=== PATIENT | female | born 1950 | race Caucasian/White ===

== ENCOUNTER 2018-09-14 05:53 | Day surgery (SDC) | payer OTHER, MEDICAID ==
[~2018-09-14] VITALS: Ht 147.3 cm; Wt 122.5 kg
[~2018-09-14 05:53] MED LIST: ARIP1TAB12 PO; ASPI81TA27 PO; CHOL50007 PO; FLUO-125 PO; LEVO175T31 PO; LORA-622 PO; METAPOW IN; OXYB10TA14 PO; SIMV-13 PO; TRIA50CA38 PO
[2018-09-14] MEDS ORDERED: BUPIVACAINE 0.25% INJ 50ML VIAL ONE (07:03)
[2018-09-14] MEDS ORDERED: LIDOCAINE 1% HCL (LOCAL ANESTH.) INJ 20ML MDV ONE (07:03)
[2018-09-14] MEDS ORDERED: ceFAZolin 1GM/50ML 100 ML IV ONE (07:05)
[2018-09-14] MEDS ORDERED: SUCCINYLCHOLINE CHLORIDE 20 MG/ML 10ML VIAL IV ONE (07:08)
[2018-09-14] MEDS ORDERED: LIDOCAINE 1% (LOCAL ANESTH.) PF 5ml SDV ONE (07:08)
[2018-09-14] MEDS ORDERED: MIDAZOLAM HCL 1MG/1ML-2 ML VIAL ONE (07:19)
[2018-09-14] MEDS ORDERED: ROCURONIUM 10MG/ML 10ML VIAL IV ONE (07:21)
[2018-09-14] MEDS ORDERED: ETOMIDATE (2MG/ML) 20ML VIAL IV ONE (07:21)
[2018-09-14] MEDS ORDERED: METOCLOPRAMIDE HCL 5MG/ml INJ 2ml VIAL ONE ×2 (07:24→08:59)
[2018-09-14] MEDS ORDERED: fentaNYL CITRATE 100 MCG/2 ML VL ONE (07:40)
[2018-09-14] MEDS ORDERED: ESMOLOL HCL 10 ML IV ONE (07:41)
[2018-09-14] MEDS ORDERED: GLYCOPYRROLATE 0.2 MG/ML 1ML VIAL ONE (07:58)
[2018-09-14] MEDS ORDERED: NEOSTIGMINE 1 MG/ML INJ (10mg/10ML VIAL) ONE (07:58)
[2018-09-14] MEDS ORDERED: ONDANSETRON HCL 4 MG/2 ML VIAL IV ONE (08:00)
[2018-09-14] MEDS ORDERED: hydrALAZINE HCL 20 MG/ML VL IV PRN (08:00)
[2018-09-14] MEDS ORDERED: HYDROmorphone HCL 2 MG/ML VL IV PRN ×2 (08:00)
[2018-09-14] MEDS ORDERED: NALOXONE HCL 0.4 MG/ML VIAL IV PRN (08:00)
[2018-09-14] MEDS ORDERED: ALBUTEROL SULFATE 90 MCG MDI IN ONE (08:10)
[2018-09-14] MEDS ORDERED: hydrALAZINE HCL 20 MG/ML VL IV ONE (08:28)
[2018-09-14 08:41] VITALS: BP_SYST 174; BP_SYST 96; BP_DIAS 96
[2018-09-14] MEDS ORDERED: MORPHINE SULF(PF) 0.5MG/ML 10ML VIAL ONE (09:08)
[2018-09-14] MEDS ORDERED: methylPREDNISolone SOD SUCC 125 MG/2 ML VL IV ONE (09:15)
[2018-09-14] MEDS ORDERED: FUROSEMIDE 40 MG/4 ML VIAL IV ONE (09:15)
[2018-09-14] MEDS ORDERED: FUROSEMIDE 20 MG/2 ML VIAL ONE (09:20)
[2018-09-14] MEDS ORDERED: PHENYLEPHRINE HCL 10 MG/ML VL ONE (09:21)
[2018-09-14] MEDS ORDERED: SODIUM CHLORIDE LOCK 10 ML ONE (09:21)
[2018-09-14] MEDS ORDERED: PROPOFOL 10 MG/ML 20 ML IV ONE (09:23)
[2018-09-14] MEDS ORDERED: diphenhdrAMINE HCL 50 MG/1 ML VL ONE (09:29)
[2018-09-14] MEDS ORDERED: ACETAMINOPHEN IV 1000 MG/100ML (10MG/ML) IV ONE (10:00)
[2018-09-14 10:25] VITALS: BP 139/76
[2018-09-14] MEDS ORDERED: ALBUTEROL SULF 2.5 MG/0.5ML(0.5%) NEB SOLN NEB PRN (11:30)
[2018-09-14] MEDS ORDERED: LEVALBUTEROL HCL 1.25 MG/0.5 ML NEB SOLN NEB ONE (14:00)
== END 2018-09-14 13:20 | disposition home or self-care (01) ==
LOC: SUR 05:53
PROVIDERS: ATTEND Orthopaedic Surgery Adult Reconstructive Orthopaedic Surgery
DX: G56.03 Carpal tunnel syndrome, bilateral upper limbs (principal); E11.22 Type 2 diabetes mellitus with diabetic chronic kidney disease; I13.10 Hypertensive heart and chronic kidney disease without heart failure, with stage 1 through stage 4 chronic kidney disease, or unspecified chronic kidney disease; N18.4 Chronic kidney disease, stage 4 (severe); J45.909 Unspecified asthma, uncomplicated; E66.8 Other obesity; E89.0 Postprocedural hypothyroidism; J98.4 Other disorders of lung; E78.5 Hyperlipidemia, unspecified; F12.90 Cannabis use, unspecified, uncomplicated; Z90.49 Acquired absence of other specified parts of digestive tract; Z90.710 Acquired absence of both cervix and uterus; Z68.43 Body mass index [BMI] 50.0-59.9, adult; Z79.899 Other long term (current) drug therapy; Z79.82 Long term (current) use of aspirin
CPT/HCPCS: 29848; 36600; 71045; 82805; 94640; 94660; J0131; J0330; J0360; J0690; J1200; J1940; J2001; J2250; J2270; J2370; J2704; J2765; J2930; J3010; J3490; J7611; J7612